=== PATIENT | male | born 1950 | race Caucasian/White ===

== ENCOUNTER 2018-09-08 15:39 | Outpatient (REF) | payer MEDICARE, SELFPAY ==
[2018-09-11 09:59] LABS: PSA, Diagnostic 0.6 ng/ml (0-6.5)
== END 2018-09-08 15:59 ==
LOC: LBN 15:39
PROVIDERS: PCP Family Medicine; Visit Provider Urology
DX: C61 Malignant neoplasm of prostate (principal)
CPT/HCPCS: 84153

== ENCOUNTER 2018-11-10 11:44 | Outpatient (REF) | payer MEDICARE, SELFPAY ==
[2018-11-13 09:58] LABS: PSA, Diagnostic 0.6 ng/ml (0-6.5)
== END 2018-11-10 12:04 ==
LOC: LBN 11:44
PROVIDERS: PCP Family Medicine; Visit Provider Nurse Practitioner Adult Health
DX: C61 Malignant neoplasm of prostate (principal)
CPT/HCPCS: 84153

== ENCOUNTER 2019-12-31 17:10 | Outpatient (REF) | payer MEDICARE, SELFPAY ==
[2019-12-31 21:12] LABS: Anion Gap 11.1 mmol/L (3-11); BUN 19 mg/dL (7-18); CO2 25.9 mmol/L (21.0-32.0); CREATININE 0.95 mg/dL (0.70-1.30); Calcium 8.9 mg/dL (8.5-10.1); Chloride 105 mmol/L (98-107); Glucose 101 mg/dL (74-106); Potassium 3.9 mmol/L (3.5-5.1); Sodium 142 mmol/L (136-145)
[2020-01-02 09:11] LABS: PSA, Diagnostic 0.6 ng/mL (0.0-6.5)
== END 2019-12-31 17:30 ==
LOC: NCHCN 17:10
PROVIDERS: PCP Family Medicine; Visit Provider Nurse Practitioner Family
DX: C61 Malignant neoplasm of prostate (principal); R42 Dizziness and giddiness
CPT/HCPCS: 80048; 84153

== ENCOUNTER 2020-07-21 20:44 | Outpatient (REF) | payer MEDICARE, MEDICAID, SELFPAY ==
[2020-07-21 22:18] LABS: Anion Gap 11.8 mmol/L (3-11); BUN 24 mg/dL (7-18); CO2 23.2 mmol/L (21.0-32.0); CREATININE 0.9 mg/dL (0.70-1.30); Calcium 8.9 mg/dL (8.5-10.1); Chloride 107 mmol/L (98-107); Glucose 110 mg/dL (74-106); Potassium 4.1 mmol/L (3.5-5.1); Sodium 142 mmol/L (136-145)
[2020-07-22 18:04] LABS: PSA, Screening 0.9 ng/mL (0.0-6.5)
== END 2020-07-21 20:45 | disposition home or self-care (01) ==
LOC: NCHCN 20:44
PROVIDERS: PCP Family Medicine; Visit Provider Family Medicine
DX: I10 Essential (primary) hypertension (principal); D50.9 Iron deficiency anemia, unspecified; E78.5 Hyperlipidemia, unspecified; N32.0 Bladder-neck obstruction; N40.0 Benign prostatic hyperplasia without lower urinary tract symptoms; Z12.5 Encounter for screening for malignant neoplasm of prostate
CPT/HCPCS: 80048; 84153

== ENCOUNTER 2021-01-06 16:45 | Outpatient (REF) | payer MEDICARE, MEDICAID, SELFPAY ==
[2021-01-06 21:30] LABS: HCT 46.4 % (40.0-50.0); HGB 15.7 g/dL (13.5-17.5); MCH 28.3 pg (27.0-33.0); MCHC 33.8 % (32.0-36.0); MCV 83.8 fL (80-95); MPV 11.5 fL (8.0-11.0); Platelet Count 214 10^3/uL (130-400); RBC 5.54 10^6/uL (4.36-5.78); RDW 13.2 % (11.8-14.1); RDW-SD 40.8 fL; WBC 5.56 10^3/uL (4.4-10.8)
[2021-01-06 22:03] LABS: Hemoglobin A1C 5.6 % (<5.7)
[2021-01-06 22:21] LABS: Calculated LDL 155 mg/dL (<100); Cholesterol 237 mg/dL (<200); Folate 15.4 ng/mL (8.6-20.0); HDL Cholesterol 45 mg/dL (40-60); TSH (W/Ref FT4) 0.62 uIU/mL (0.36-3.74); Triglyceride 189 mg/dL (<150); Vitamin B12 426 pg/mL (193-986)
== END 2021-01-06 16:46 | disposition home or self-care (01) ==
LOC: NCHCN 16:45
PROVIDERS: PCP Family Medicine; Visit Provider Nurse Practitioner Family
DX: Z13.6 Encounter for screening for cardiovascular disorders (principal); R20.2 Paresthesia of skin
CPT/HCPCS: 80061; 85027; 82607; 82746; 83036; 84443

== ENCOUNTER 2021-03-14 15:45 | Outpatient (REF) | payer MEDICARE, MEDICAID, SELFPAY ==
[2021-03-13 20:27] LABS: ALT 38 U/L (16-63); AST 22 U/L (15-37); Albumin 3.8 g/dL (3.4-5.0); Alkaline Phosphatase 100 U/L (46-116); Bilirubin, Direct 0.1 mg/dL (0.0-0.2); Bilirubin, Total 0.5 mg/dL (0.2-1.0); Total Protein 6.8 g/dL (6.4-8.2)
[2021-03-13 21:09] LABS: Calculated LDL 89 mg/dL (<100); Cholesterol 181 mg/dL (<200); HDL Cholesterol 61 mg/dL (40-60); Triglyceride 157 mg/dL (<150)
[2021-03-16 10:30] LABS: PSA, Screening 0.8 ng/mL (0.0-6.5)
== END 2021-03-14 15:46 | disposition home or self-care (01) ==
LOC: NCHCN 15:45
PROVIDERS: PCP Family Medicine; Visit Provider Family Medicine
DX: Z51.81 Encounter for therapeutic drug level monitoring (principal); Z12.5 Encounter for screening for malignant neoplasm of prostate
CPT/HCPCS: 80061; 80076; 84153

== ENCOUNTER 2021-12-30 18:53 | Outpatient (REF) | payer MEDICARE, MEDICAID, SELFPAY ==
[2021-12-30 21:57] LABS: ESR 5 mm/hr (0-20)
[2021-12-30 22:07] LABS: C-Reactive Protein 0.48 mg/dL (0.0-0.3)
[2021-12-31 20:36] LABS: PSA, Screening 0.9 ng/mL (<=6.5)
== END 2021-12-30 18:54 | disposition home or self-care (01) ==
LOC: NCHCN 18:53
PROVIDERS: PCP Family Medicine; Visit Provider Family Medicine
DX: M79.605 Pain in left leg (principal); Z12.5 Encounter for screening for malignant neoplasm of prostate
CPT/HCPCS: 84153; 85652; 86140

== ENCOUNTER 2022-07-28 13:44 | Outpatient (REF) | payer MEDICARE, MEDICAID, SELFPAY ==
[2022-07-28 22:31] LABS: PSA, Diagnostic 0.7 ng/mL (<=6.5)
== END 2022-07-28 13:45 | disposition home or self-care (01) ==
LOC: NCHCN 13:44
PROVIDERS: PCP Family Medicine; Visit Provider Family Medicine
DX: C61 Malignant neoplasm of prostate (principal)
CPT/HCPCS: 84153

== ENCOUNTER 2022-08-27 20:09 | Outpatient (REF) | payer MEDICARE, SELFPAY ==
[2022-08-27 21:27] LABS: ESR 1 mm/hr (0-20)
[2022-08-27 21:28] LABS: Abs Immature Grans 0.02 10^3/uL (0.0-0.06); Absolute Basophil Count 0.07 10^3/uL (0.0-0.2); Absolute Eosinophil Count 0.26 10^3/uL (0.0-0.7); Absolute Lymphocyte Count 1.53 10^3/uL (1.2-3.4); Absolute Monocyte Count 0.42 10^3/uL (0.1-0.8); Absolute Neutrophil Count 3.45 10^3/uL (1.2-6.7); Basophils % 1.2; Eosinophils % 4.5; HCT 47.5 % (40.0-50.0); HGB 15.8 g/dL (13.5-17.5); Immature Grans % 0.3; Lymphocytes % 26.6; MCH 28.1 pg (27.0-33.0); MCHC 33.3 % (32.0-36.0); MCV 84 fL (80-95); MPV 11.4 fL (8.0-11.0); Monocytes % 7.3; Neutrophils % 60.1; Platelet Count 229 10^3/uL (130-400); RBC 5.63 10^6/uL (4.36-5.78); RDW 13.8 % (11.8-14.1); RDW-SD 42.2 fL; WBC 5.75 10^3/uL (4.4-10.8)
[2022-08-27 21:50] LABS: C-Reactive Protein < 0.05 mg/dL (0.0-0.3)
== END 2022-08-27 20:10 | disposition home or self-care (01) ==
LOC: NCHCN 20:09
PROVIDERS: PCP Family Medicine; Visit Provider Family Medicine
DX: R06.09 Other forms of dyspnea (principal); M79.605 Pain in left leg; M79.18 Myalgia, other site
CPT/HCPCS: 85652; 85025; 86140

== ENCOUNTER 2023-01-18 18:45 | Outpatient (REF) | payer MEDICARE, SELFPAY ==
[2023-01-19 19:34] LABS: PSA, Screening 1.1 ng/mL (<=6.5)
== END 2023-01-18 18:46 | disposition home or self-care (01) ==
LOC: NCHCN 18:45
PROVIDERS: PCP Family Medicine; Visit Provider Family Medicine
DX: C61 Malignant neoplasm of prostate (principal)
CPT/HCPCS: 84153

== ENCOUNTER 2023-08-16 15:14 | Outpatient (REF) | payer MEDICARE, MEDICAID, SELFPAY ==
[2023-08-16 15:13] LABS: Anion Gap 10.4 mmol/L (3-11); BUN 23 mg/dL (7-18); CO2 24.6 mmol/L (21.0-32.0); CREATININE 1.1 mg/dL (0.70-1.30); Calculated LDL 99 mg/dL (<100); Chloride 103 mmol/L (98-107); Cholesterol 201 mg/dL (<200); Estimated GFR 70.01 (mL/min/1.73m2); Glucose 102 mg/dL (74-106); HDL Cholesterol 57 mg/dL (40-60); Potassium 4.3 mmol/L (3.5-5.1); Sodium 138 mmol/L (136-145); Triglyceride 227 mg/dL (<150)
== END 2023-08-16 15:15 | disposition home or self-care (01) ==
LOC: NCHCN 15:14
PROVIDERS: PCP Family Medicine; Referring Provider Family Medicine; Visit Provider Family Medicine
DX: I10 Essential (primary) hypertension (principal)
CPT/HCPCS: 80048; 80061

== ENCOUNTER 2024-08-15 21:09 | Outpatient (REF) | payer MEDICARE, MEDICAID, SELFPAY | END 2024-08-15 21:10 | disposition home or self-care (01) | LOC: NCHCN 21:09 | PROVIDERS: PCP Family Medicine; Visit Provider Family Medicine | DX: N39.0 Urinary tract infection, site not specified (principal); B96.29 Other Escherichia coli [E. coli] as the cause of diseases classified elsewhere | CPT/HCPCS: 87077; 87086; 87186 ==

== ENCOUNTER 2024-10-24 12:33 | Outpatient (REF) | payer MEDICARE, MEDICAID, SELFPAY ==
[2024-10-24 17:06] LABS: Anion Gap 10.2 mmol/L (3-11); BUN 19 mg/dL (7-18); CO2 24.8 mmol/L (21.0-32.0); CREATININE 0.8 mg/dL (0.70-1.30); Calcium 9.1 mg/dL (8.5-10.1); Calculated LDL 71 mg/dL (<100); Chloride 104 mmol/L (98-107); Cholesterol 165 mg/dL (<200); Estimated GFR 91.72 (mL/min/1.73m2); Glucose 115 mg/dL (74-106); HDL Cholesterol 59 mg/dL (>or=40); Potassium 3.9 mmol/L (3.5-5.1); Sodium 139 mmol/L (136-145); Triglyceride 175 mg/dL (<150)
== END 2024-10-24 12:34 | disposition home or self-care (01) ==
LOC: NCHCN 12:33
PROVIDERS: PCP Family Medicine; Visit Provider Family Medicine
DX: I10 Essential (primary) hypertension (principal)
CPT/HCPCS: 80048; 80061

== ENCOUNTER 2025-04-08 21:22 | Outpatient (REF) | payer MEDICARE, SELFPAY | END 2025-04-08 21:23 | disposition home or self-care (01) | LOC: LBN 21:22 | PROVIDERS: PCP Family Medicine; Visit Provider Urology | DX: C61 Malignant neoplasm of prostate (principal) | CPT/HCPCS: 84153 ==